=== PATIENT | male | born 1955 | race Caucasian/White ===

== ENCOUNTER → 2017-05-14 | Outpatient (CLI) | payer OTHER ==
[~2017-05-14] MED LIST: ACETAMINOPHEN325 M1 PO; ALDACTONE25 MG PO; AMBIEN 10 MG TA10 MG PO; ASPIRIN81 M2 PO; CENTRUM TABLET1 TAB PO; CLONAZEPAM 1 MG1 M1 PO; ENDOCET 5-3251 EACH PO; GLYCOLAX POWDER17 G1 PO; LIPITOR40 MG PO; LISINOPRIL10 MG PO; LOPRESSOR 50 MG50 M1 PO; LORTAB 5 MG/5001 TA1 PO; LORTAB 7.5/5001 TA3 PO; NITROGLYCERIN0.4 MG SL; NITROSTAT0.4 MG SL; PERIDEX 0.12%473 M1 TRANSDERM; PHISOHEX148 ML TP; SYMBICORT160 MCG/4. INH; TOPROL XL50 MG PO; TRAZODONE 150150 M1 PO; XOPENEX HF1 UDINHALE IH
--- NOTE | ~2017-05-14 | 2DMMODE ---
[facility] [address] [place] [address] 2 D/M-MODE ECHOCARDIOGRAM Name: JOANNEBOONE IGNACIO Room #: REG [facility]#: [id number] Admission: 05/14/17 Attend Phys: Maikol De Jesus MD Discharge: Date of : 51 Date of Service: 05/14/17 1105 Report #: [id number] THIS REPORT FOR: //name// APPROVED REPORT Study performed: 05/14/2017 09:57:12 EXAM: Comprehensive 2D, Doppler, and color-flow Echocardiogram Patient Location: Out-Patient Room #: Echo lab Status: routine BSA: 1.71 HR: 74 bpm BP: 112/78 mmHg Other Information Study Quality: Good Indications CAD 2D Dimensions RVDd: 41.48 mm LVEF(%): 50.15 (>50%) IVSd: 11.33 (7-11mm) LVOT Diam: 23.41 (18-24mm) LVDd: 51.17 mm PWd: 10.80 (7-11mm) Ascending Ao: 33.96 (22-36mm) LVDs: 38.06 (25-40mm) Aortic Root: 36.79 mm IVC: 14.00 mm Martin's LVEF: 50.15 % Volumes Left Atrial Volume (Systole) Single Plane 4CH: 50.87 mL Single Plane 2CH: 47.07 mL LA ESV Index: 33.00 mL/m2 Aortic Valve AoV Peak Sawyer.: 0.97 m/s AO Peak Gr.: 3.78 mmHg LVOT Max P.37 mmHg LVOT Max V: 0.77 m/s RIANA Vmax: 3.41 cm2 Mitral Valve E/A Ratio: 0.7 MV Decel. Time: 288.41 ms MV E Max Sawyer.: 0.56 m/s [facility] [place] [address] 2 D/M-MODE ECHOCARDIOGRAM Name: BOONE RUBIO Room #: REG [facility]#: [id number] Admission: 05/14/17 Attend Phys: Maikol De Jesus MD Discharge: Date of : 51 Date of Service: 05/14/17 1105 Report #: [id number] MV A Sawyer.: 0.79 m/s MV PHT: 83.64 ms IVRT: 129.18 ms Pulmonary Valve PV Peak Sawyer.: 0.79 m/s PV Peak Gr.: 2.50 mmHg Pulmonary Vein P Vein S: 0.47 m/s P Vein A: 0.33 m/s P Vein D: 0.44 m/s P Vein A Dur.: 120.0 msec P Vein S/D Ratio: 1.07 Tricuspid Valve TR Peak Sawyer.: 2.16 m/s TR Peak Gr.: 18.65 mmHg PA Pressure: 24.00 mmHg Left Ventricle The left ventricle is normal size. There is normal left ventricular wall thickness. Left ventricular systolic function is mildly decreased. LVEF is 45-50%. Grade I - abnormal relaxation pattern. Right Ventricle The right ventricle is normal size. The right ventricular systolic function is normal. Atria Left atrium is at the upper limits of normal. Right atrium is at the upper limits of normal. Aortic Valve The aortic valve is normal in structure. Aortic valve is calcified. No aortic regurgitation is present. There is no aortic valvular stenosis. Mitral Valve The mitral valve is normal in structure. There is no mitral valve regurgitation noted. No evidence of mitral valve stenosis. Tricuspid Valve The tricuspid valve is normal in structure. There is trace tricuspid regurgitation. Estimated PAP 24 mmHg. There is no pulmonary hypertension. Pulmonic Valve [address] [address] 2 D/M-MODE ECHOCARDIOGRAM Name: BOONE RUBIO IGNACIO Room #: REG [facility]#: [id number] Admission: 05/14/17 Attend Phys: Maikol De Jesus MD Discharge: Date of : 51 Date of Service: 05/14/17 1105 Report #: [id number] The pulmonary valve is normal in structure. Trace pulmonic regurgitation. Great Vessels The aortic root is normal in size. IVC is normal in size and collapses >50% with inspiration. Pericardium There is no pericardial effusion. <Conclusion> The left ventricle is normal size. Left ventricular systolic function is mildly decreased. Grade I - abnormal relaxation pattern. The right ventricle is normal size. The aortic valve is normal in structure. Aortic valve is calcified. There is no mitral valve regurgitation noted. There is trace tricuspid regurgitation. Estimated PAP 24 mmHg. There is no pulmonary hypertension. <ELECTRONICALLY SIGNED> By: Maikol De Jesus MD 05/14/17 1105 1105 1105 Maikol De Jesus MD /INF
== END ==
LOC: CV 09:47
DX: I25.10 Atherosclerotic heart disease of native coronary artery without angina pectoris (principal)

== ENCOUNTER → 2017-11-12 | Outpatient (CLI) | payer OTHER | LOC: NUC 05:42 | DX: I25.10 Atherosclerotic heart disease of native coronary artery without angina pectoris (principal); I10 Essential (primary) hypertension; Z87.891 Personal history of nicotine dependence ==

== ENCOUNTER → 2021-07-22 | Outpatient (CLI) | payer OTHER | LOC: SJCVC 12:54 | PROVIDERS: ATTEND Internal Medicine Cardiovascular Disease | DX: R94.31 Abnormal electrocardiogram [ECG] [EKG] (principal); I45.10 Unspecified right bundle-branch block; I49.3 Ventricular premature depolarization; R00.0 Tachycardia, unspecified; I25.10 Atherosclerotic heart disease of native coronary artery without angina pectoris; I10 Essential (primary) hypertension; E78.00 Pure hypercholesterolemia, unspecified; K21.9 Gastro-esophageal reflux disease without esophagitis; C61 Malignant neoplasm of prostate; Z98.890 Other specified postprocedural states; Z95.1 Presence of aortocoronary bypass graft; Z79.82 Long term (current) use of aspirin; Z79.899 Other long term (current) drug therapy; Z87.891 Personal history of nicotine dependence ==